=== PATIENT | female | born 2000 | race Two or more races ===

== ENCOUNTER 2024-10-10 22:06 | Emergency (ER) | payer OTHER ==
[~2024-10-10] VITALS: Ht 162.6 cm; Wt 72.6 kg
[2024-10-10 22:22] VITALS: BP 120/79; O2SAT 100
[2024-10-10] MEDS ORDERED: FAMOtidine 10 MG/ML (4ML VIAL) IV PUSH ONE (23:15)
[2024-10-10] MEDS ORDERED: HYOSCYAMINE SULFATE 0.125 MG TAB.SUBL SL ONE (23:15)
[2024-10-10] MEDS ORDERED: ONDANSETRON HCL 2 MG/ML VIAL IM ONE (23:15)
[2024-10-10] MEDS ORDERED: HYOSCYAMINE SULFATE 0.125 MG TAB.SUBL ONE (23:16)
[2024-10-10] MEDS ORDERED: ONDANSETRON HCL 2 MG/ML VIAL ONE (23:16)
[2024-10-10] MEDS ORDERED: FAMOTIDINE/PF 20 MG/2 ML VIAL ONE (23:16)
[2024-10-10 23:48] LABS: BASO % 0.2 % (0.1-1.2); EOS # 0.19 (0.04-0.54); EOS % 2.1 % (0.7-7.0); LYMPH # 2.45 (1.18-3.74); LYMPH % 27.6 % (19.3-53.1); MEAN PLATELET VOLUME 11.10 fl (9.4-12.4); MONO # 0.77 (0.24-0.82); MONO % 8.7 % (4.7-12.5); NEUT # 5.41 (1.56-6.13); NEUT % 61.1 % (34.0-71.1); RED CELL DISTRIBUTION WIDTH 12.7 % (11.6-14.4)
[2024-10-11 00:26] LABS: ALT/SGPT 18.0 U/L (12-78); AST/SGOT 10.0 U/L (15-37); BILIRUBIN TOTAL 0.3 mg/dL (0.3-1.2); BUN CREA RATIO 10.0 (7.0-25.0); CREATININE SERUM 0.84 mg/dL (0.55-1.02); GFR 83.3; GLOBULINA 4.3 G/DL (2.4-3.5); GLUCOSE FASTING 81.0 mg/dL (65-100); OSMOLALITY SERUM 275.0 MOSM/KG (275-295)
[2024-10-11 00:28] LABS: HCG QUANTITATIVE 65354.0 mUI/mL (1-3)
== END 2024-10-11 01:22 | disposition home or self-care (01) ==
LOC: ER 23:13
PROVIDERS: General Practice
DX: O21.0 Mild hyperemesis gravidarum (principal)

== ENCOUNTER → 2025-01-09 08:58 | Outpatient (CLI) | payer OTHER | END | disposition home or self-care (01) | LOC: PRENATAL 08:58 | PROVIDERS: ATTEND Obstetrics & Gynecology Maternal & Fetal Medicine | DX: O44.00 Complete placenta previa NOS or without hemorrhage, unspecified trimester (principal); O43.90 Unspecified placental disorder, unspecified trimester; Z3A.20 20 weeks gestation of pregnancy ==

== ENCOUNTER → 2025-02-16 | Outpatient (CLI) | payer OTHER ==
[~2025-02-16] VITALS: Ht 162.6 cm; Wt 90.3 kg
[~2025-02-16] MED LIST: BETAMETHASONE ACETATE,SOD PHOS 30 MG/5 ML ML IM SCH; LABETALOL HCL 100 MG/20 ML ML IV NR; LABETALOL HCL 20MG/4ML SYRINGE IV STA; MAGNESIUM SULFATE IN WATER 0.04 GM/ML IV.SOLN IV SCH; MAGNESIUM SULFATE IN WATER 4 GM/100 ML PIGGYBACK IV SCH; RINGERS SOLUTION,LACTATED 10,000 ML IV SCH; hydrALAZINE HCL 20 MG VIAL IV NR
--- NOTE | 2025-02-16 13:59 | NUR ---
SE RECIBE PTE ALERTA Y ORIENTADA X3 EMBARAZADA DE 25 SEMANAS. REFIERE JUAN ESTADO VOMITANDO Y CON MOLESTIAS EN EL PECHO. PTE REFIERE QUE COMENZO CON DOLOR EN EL FABRICE Y LA ESPALDA. SE REALIZA EKG SE MIDEN S/V Y SE PRESENTA AL MEDICO.
--- NOTE | 2025-02-16 14:50 | NUR ---
SE COLECTAN MUESTRAS DE LABORATORIO Y SE CANALIZA A PACIENTE BAJO MEDIDAS ASEPTICAS. SE ADMINISTRA MEDICAMENTO ORA ORDEN MEDICA Y SE ENVIA PACIENTE A UNIDAD DE RYLEE DE PARTOS POR ORDEN MEDICA.
[2025-02-16 15:14] VITALS: BP 158/90; BP 174/99; O2SAT 100
[2025-02-16 15:33] LABS: BASO % 0.2 % (0.1-1.2); EOS # 0.15 (0.04-0.54); EOS % 1.3 % (0.7-7.0); LYMPH # 1.90 (1.18-3.74); LYMPH % 16.6 % (19.3-53.1); MEAN PLATELET VOLUME 12.20 fl (9.4-12.4); MONO # 1.10 (0.24-0.82); MONO % 9.6 % (4.7-12.5); NEUT # 8.20 (1.56-6.13); NEUT % 71.9 % (34.0-71.1); RED CELL DISTRIBUTION WIDTH 12.9 % (11.6-14.4)
[2025-02-16 15:39] LABS: ALT/SGPT 46.0 U/L (12-78); AST/SGOT 57.0 U/L (15-37); BILIRUBIN TOTAL 0.57 mg/dL (0.3-1.2); BUN CREA RATIO 14.0 (7.0-25.0); CREATININE SERUM 0.65 mg/dL (0.55-1.02); GFR 111.06; GLOBULINA 3.8 G/DL (2.4-3.5); GLUCOSE FASTING 91.0 mg/dL (65-100); OSMOLALITY SERUM 280.0 MOSM/KG (275-295)
[2025-02-16 17:04] LABS: INR < 0.93
[2025-02-16 17:37] LABS: URINE APPEARANCE Cloudy; URINE BILIRRUBIN Small (NEGATIVE); URINE BLOOD Moderate; URINE COLOR Dark Yellow; URINE KETONE Trace (NEGATIVE); URINE LEUKOCYTE Small; URINE NITRATE Negative; URINE PROTEIN >=1000 (NEGATIVE); URINE UROBILINOGEN 0.2 E.U./dl
[2025-02-16 17:41] LABS: URINE EPITHELIAL CELLS 113.3 uL (0.0-38.8); URINE RBC 32.1 uL (0.0-20.8); URINE WBC 63.6 uL (0.0-23.2)
[2025-02-16 18:10] LABS: URINE CAST > 21.83 uL (0.0-1.40); URINE GLUCOSE 100 MG/DL (NEGATIVE); URINE YEAST NEGATIVE /hpf
== END | disposition home or self-care (01) ==
LOC: EDSTATUS 13:34 → ER 13:34 → CLINIC 14:08 → OBS/DEL 14:08 → ER 14:08 → LDR 15:28
PROVIDERS: Preventive Medicine Public Health & General Preventive Medicine; Specialist
DX: O13.2 Gestational [pregnancy-induced] hypertension without significant proteinuria, second trimester (principal); Z3A.26 26 weeks gestation of pregnancy